=== PATIENT | male | born 1965 | race Two or more races ===

== ENCOUNTER 2025-09-03 21:10 | Emergency (ER) | payer MEDICAID, OTHER ==
[~2025-09-03] VITALS: Ht 149.9 cm; Wt 62.6 kg
[2025-09-03 21:19] VITALS: BP 156/104; PULSE 70; RESP 16; TEMP 98.8; O2SAT 98
[2025-09-03] MEDS ORDERED: CLIN1CAP70 PO (23:47)
--- NOTE | 2025-09-03 23:47 | ED.PDOC ---
History of Present Illness(SKN HPI Comments 59-year-old male presents to ER for wound check. Patient reports that he started experiencing 7/10 pain with associated redness to right foot three days ago after he scratched his right foot with his fingers. Reports that he used a topical "violent" solution without relief and presents to ER ambulatory on arrival, with steady gait, in no distress. Denies fever, body aches, chills, drainage or any further symptoms/complaints Chief Complaint: Wound Check Time Seen by MD: 21:25 Primary Care Provider: UNKNOWN History of Present Illness: Nurses Notes, Medications, Allergies Allergies: Coded Allergies: NO KNOWN ALLERGIES (Unverified , 09/03/25) Home Meds Active Scripts Clotrimazole (Lotrimin Af) 1 % Cre, 1 APPLIC TOP BID for 7 Days, #1 CRE 0 Refills Prov:YUNI TRINIDAD 09/03/25 Clindamycin Hcl (Clindamycin Hcl) 300 Mg Cap, 1 CAP PO TID for 7 Days, #21 CAP 0 Refills Prov:YUNI TRINIDAD 09/03/25 Information Source: Patient Mode of Arrival: Ambulatory Past Medical History PAST MEDICAL HISTORY: Denies Surgical History: Denies all surgeries Family History Family History: Unknown Social History Smoker: Non-Smoker Alcohol: Denies ETOH Use Drugs: Denies Drug Use Lives In: Home Constitutional: denies: chills, diaphoresis, fatigue, fever, malaise, sweats, weakness, others EENTM: denies: blurred vision, double vision, ear bleeding, ear discharge, ear drainage, ear pain, ear ringing, eye pain, eye redness, hearing loss, mouth pain, mouth swelling, nasal discharge, nose bleeding, nose congestion, nose pain, photophobia, tearing, throat pain, throat swelling, voice changes, others Respiratory: denies: cough, hemoptysis, orthopnea, SOB at rest, shortness of breath, SOB with excertion, stridor, wheezing, others Cardiovascular: denies: chest pain, dizzy spells, diaphoresis, Dyspnea on exertion, edema, irregular heart beat, left arm pain, lightheadedness, palpitations, PND, syncope, others Gastrointestinal: denies: abdomen distended, abdominal pain, blood streaked bowels, constipated, diarrhea, dysphagia, difficulty swallowing, hematemesis, melena, nausea, poor appetite, poor fluid intake, rectal bleeding, rectal pain, vomiting, others Genitourinary: denies: burning, dysuria, flank pain, frequency, hematuria, incontinence, penile discharge, penile sore, pain, testicle pain, testicle swelling, urgency, others Musculoskeletal: denies: back pain, gout, joint pain, joint swelling, muscle pain, muscle stiffness, neck pain, others Integumetry: reports: others (As stated in HPI) Allergic/Immunocompromised: denies: Difficulty Healing, Frequent Infections, Hives, Itching, others Hematologic/Lymphatic: denies: anemia, blood clots, easy bleeding, easy bruising, swollen glands, others Endocrine: denies: excessive hunger, excessive sweating, excessive thirst, excessive urination, flushing, intolerance to cold, intolerance to heat, unexplained weight gain, unexplained weight loss, others Psychiatric: denies: anxiety, bipolar disorder, depression, hopeless, panic disorder, schizophrenia, sleepless, suicidal, others Physical Exam General Appearance: No Apparent Distress HEENT: PERRL/EOMI Neck: Full Range of Motion, Non-Tender, Normal Respiratory: Chest Non-Tender, Lungs Clear, No Accessory Muscle Use, No Res piratory Distress, Normal Breath Sounds Cardiovascular: No Murmur, No Gallop, Regular Rate/Rhythm Breast Exam: Deferred Gastrointestinal: NOT DONE Genitalia: Deferred Pelvic: Deferred Rectal: Deferred Extremities: Normal capillary refill, Normal range of motion Neurologic: Alert, No Motor Deficits, Normal Affect, Normal Mood, No Sensory Deficits Cerebellar Function: Normal Reflexes: Normal Skin: Dry, Warm, Other (Mild erythema noted to dorsal surface of right foot with webspace involvement, no bleeding/drainage/fluctuance noted. No bony tenderness appreciated. Gait intact without abnormality) Peripheral Pulses: 2+ dorsalis pedis (R), 2+ dorsalis pedis (L), 2+ Radial (R), 2+ Radial (L), 2+ Brachial (R), 2+ Brachial (L) Lymphatic: No Adenopathy Was a procedure done? Was a procedure done?: No Sedation Sedation?: No Differential Diagnosis (INTG) Differential Diagnosis: Abscess Differential Diagnosis: Neurovascular Injury Differential Diagnosis: Puncture Wound, Retained Foreign Body X-Ray, Labs, Meds, VS Vital Signs Date Time Temp Pulse Resp B/P (MAP) Pulse Ox O2 Delivery O2 Flow Rate FiO2 09/03/25 21:19 98.8 70 16 156/104 98 98.8 Rocephin 1 g IM ordered Toradol 60 mg IM ordered Wound care/cleaning discussed and advised Advised to follow up with PCP in 1-2 days Patient verbalized understanding and agreeable with current plan of care Advised to return to ER immediately if symptoms worsen Time of 1ST Reevaluation: 23:24 Reevaluation 1ST: N/A Patient Education/Counseling: Diagnosis, Treatment, Prognosis, Need For Follow Up Family Education/Counseling: No Family Present SEPSIS Sepsis Screen Date sepsis recognized/suspect: Sep 03, 2025 Time Sepsis recognized/suspect: 2120 Recent Procedure: No On Antibiotic Therapy: No Respiratory Rate >20: No Heart Rate >90: No Temp<36 C (96.8 F) or >38.3 C: No SBP <90 or MAP <65 mmHG: No New Acute Mental Status Change: No Is the patient on CPAP, BIPAP,: No Physician Orders Ceftriaxone Sodium (Rocephin) (09/04/25 00:00) Vital Signs Date Time Temp Pulse Resp B/P (MAP) Pulse Ox O2 Delivery O2 Flow Rate FiO2 09/03/25 21:19 98.8 70 16 156/104 98 98.8 Departure 1 Departure Time of Disposition: 23:46 Impression: Primary Impression: Cellulitis of right foot Additional Impression: Tinea pedis, right Disposition: 01 HOME / SELF CARE / HOMELESS Condition: Stable e-Prescriptions Clotrimazole (Lotrimin Af) 1 % Cre 1 APPLIC TOP BID for 7 Days, #1 CRE 0 Refills Prov: YUNI TRINIDAD 09/03/25 Clindamycin Hcl (Clindamycin Hcl) 300 Mg Cap 1 CAP PO TID for 7 Days, #21 CAP 0 Refills Prov: YUNI TRINIDAD 09/03/25 Discharged With: Self Critical Care Note Critical Care Time?: No Stability Stability form required: No Heart Score Heart Score: Heart Score Response (Comments) Value History N/A 0 EKG N/A 0 Age N/A 0 Risk Factors N/A 0 Troponin N/A 0 Total 0 YUNI TRINIDAD Sep 03, 2025 23:47
[2025-09-03] MEDS ORDERED: CLOT-32 TOP (23:52)
[2025-09-04] MEDS: cefTRIAXone SOD 1,000 MG VL IM ONE (00:08)
[2025-09-04] MEDS: KETOROLAC TROMETH 60MG/2ML VIAL IM ONE (00:09)
[2025-09-27] MEDS ORDERED: AML5T PO (09:44)
== END 2025-09-04 00:17 | disposition home or self-care (01) ==
LOC: ER 21:10
DX: L03.115 Cellulitis of right lower limb (principal); B35.3 Tinea pedis; Z79.899 Other long term (current) drug therapy
CPT/HCPCS: 96372; 99284; J0696; J1885

== ENCOUNTER 2025-09-23 09:56 | Inpatient (IN) | payer MEDICAID ==
[~2025-09-23] VITALS: Ht 147.3 cm; Wt 58.3 kg
[~2025-09-23 09:56] MED LIST: CLIN1CAP70 PO; CLOT-32 TOP
--- NOTE | 2025-09-23 10:30 | ED.PDOC ---
General HPI Comments 59 year old male presents to the ED with a chief complaint of urinary retention onset 3 days. Patient states he has been experiencing urinary retention, penile pain, penile discharge, itching for the past 3 days. About 15 minutes prior to ED arrival, he urinated a small amount. Upon ED arrival patient was hypertensive with BP of 192/120. Denies fever, chills, nausea, vomiting, diarrhea headache, dizziness, hematuria, hematemesis. No other symptoms or modifying factors present at this time. Chief Complaint: Urinary Time Seen by MD: 10:20 Primary Care Provider: UNKNOWN Reviewed notes: Medications, Allergies Allergies: Coded Allergies: NO KNOWN ALLERGIES (Unverified , 09/03/25) Home Meds Active Scripts Clotrimazole (Lotrimin Af) 1 % Cre, 1 APPLIC TOP BID for 7 Days, #1 CRE 0 Refills Prov:YUNI TRINIDAD 09/03/25 Clindamycin Hcl (Clindamycin Hcl) 300 Mg Cap, 1 CAP PO TID for 7 Days, #21 CAP 0 Refills Prov:YUNI TRINIDAD 09/03/25 Information Source: Patient Mode of Arrival: Ambulatory Severity: Moderate Timing: Days Duration: Since onset Prehospital treatment: None Onset: Spontaneous Symptoms: Dysuria, Penile discharge History of: UTI Location: Suprapubic Penile discharge: None Modifying factors: None associated signs and symptoms: Dysuria, Other Past Medical History PAST MEDICAL HISTORY: Denies Surgical History: Denies all surgeries Family History Family History: Unknown Social History Smoker: Non-Smoker Alcohol: Denies ETOH Use Drugs: Denies Drug Use Lives In: Home Constitutional: denies: chills, diaphoresis, fatigue, fever, malaise, sweats, weakness, others EENTM: denies: blurred vision, double vision, ear bleeding, ear discharge, ear drainage, ear pain, ear ringing, eye pain, eye redness, hearing loss, mouth pain, mouth swelling, nasal discharge, nose bleeding, nose congestion, nose pain, photophobia, tearing, throat pain, throat swelling, voice changes, others Respiratory: denies: cough, hemoptysis, orthopnea, SOB at rest, shortness of breath, SOB with excertion, stridor, wheezing, others Cardiovascular: denies: chest pain, dizzy spells, diaphoresis, Dyspnea on exertion, edema, irregular heart beat, left arm pain, lightheadedness, pal pitations, PND, syncope, others Gastrointestinal: reports: others (suprapubic pain); denies: abdomen distended, abdominal pain, blood streaked bowels, constipated, diarrhea, dysphagia, difficulty swallowing, hematemesis, melena, nausea, poor appetite, poor fluid intake, rectal bleeding, rectal pain, vomiting Genitourinary: reports: dysuria, penile discharge, pain (penile), others (retention); denies: burning, flank pain, frequency, hematuria, incontinence, penile sore, testicle pain, testicle swelling, urgency Neurological: denies: dizziness, fainting, headache, left sided numbness, left sided weakness, numbness, paresthesia, pre-existing deficit, right sided numbness, right sided weakness, seizure, speech problems, tingling, tremors, weakness, others Musculoskeletal: denies: back pain, gout, joint pain, joint swelling, muscle pain, muscle stiffness, neck pain, others Integumetry: denies: bruises, change in color, change in hair/nails, dryness, laceration, lesions, lumps, rash, wounds, others Allergic/Immunocompromised: denies: Difficulty Healing, Frequent Infections, Hives, Itching, others Hematologic/Lymphatic: denies: anemia, blood clots, easy bleeding, easy bruising, swollen glands, others Endocrine: denies: excessive hunger, excessive sweating, excessive thirst, excessive urination, flushing, intolerance to cold, intolerance to heat, unexplained weight gain, unexplained weight loss, others Psychiatric: denies: anxiety, bipolar disorder, depression, hopeless, panic disorder, schizophrenia, sleepless, suicidal, others All Other Systems: Reviewed and Negative Physical Exam General Appearance: Normal HEENT: Normal ENT Inspection, Pharynx Normal, TMs Normal Neck: Full Range of Motion, Non-Tender, Normal, Normal Inspection Respiratory: Chest Non-Tender, Lungs Clear, No Accessory Muscle Use, No Respiratory Distress, Normal Breath Sounds Cardiovascular: No Edema, No JVD, No Murmur, No Gallop, Normal Peripheral Pulses, Regular Rate/Rhythm Breast Exam: Deferred Gastrointestinal: No Organomegaly, No Pulsatile Mass, Normal Bowel Sounds, Sup rapubic (Tenderness), Tenderness (suprapubic) Genitalia: Deferred Pelvic: Deferred Rectal: Deferred Extremities: No calf tenderness, Normal capillary refill, Normal inspection, Normal range of motion, Non-tender, No pedal edema Musculoskeletal : Apperance: Normal Neurologic: Alert, 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 Was a procedure done?: No Differential Diagnosis Kidney stone (Female): Other Urinary Problem (Male): Bladder Obstruction, Plelonephritis, Urinary Retention, UTI X-Ray, Labs, Meds, VS Vital Signs Date Time Temp Pulse Resp B/P (MAP) Pulse Ox O2 Delivery O2 Flow Rate FiO2 09/23/25 14:30 97.0 65 19 144/99 (114) 95 97.0 09/23/25 13:33 98.1 59 18 201/118 (145) 99 98.1 09/23/25 11:30 62 16 99 Room Air* 0 21 09/23/25 11:30 98.1 62 16 187/114 (138) 98 98.1 09/23/25 09:57 99.3 63 18 192/120 96 99.3 Lab Test 09/23/25 13:32 09/23/25 12:00 Range/Units White Blood Count 14.7 H 4.4-10.8 10^3/uL Red Blood Count 5.18 4.5-5.90 10^6/uL Hemoglobin 15.8 13.5-17.5 g/dL Hematocrit 45.3 41.0-53.0 % Mean Corpuscular Volume 87.3 80.0-100.0 fL Mean Corpuscular Hemoglobin 30.4 28.0-32.0 pg Mean Corpuscular Hemoglobin Concent 34.8 32.0-36.0 g/dL Red Cell Distribution Width 13.8 11.8-14.3 % Platelet Count 230 140-450 10^3/uL Mean Platelet Volume 8.7 6.9-10.8 fL Neutrophils (%) (Auto) 88.7 H 37.0-80.0 % Lymphocytes (%) (Auto) 7.1 L 10.0-50.0 % Monocytes (%) (Auto) 3.6 0.0-12.0 % Eosinophils (%) (Auto) 0.1 0.0-7.0 % Basophils (%) (Auto) 0.5 0.0-2.0 % Neutrophils # (Auto) 13.1 H 1.6-8.6 10 ^3/uL Lymphocytes # (Auto) 1.0 0.4-5.4 10 ^3/uL Monocytes # (Auto) 0.5 0-1.3 10 ^3/uL Eosinophils # (Auto) 0 0-0.8 10 ^3/uL Basophils # (Auto) 0.1 0-0.2 10 ^3/uL Nucleated Red Blood Cells 0.1 % Sodium Level 138 136-145 mmol/L Potassium Level 3.8 3.5-5.1 mmol/L Chloride Level 103 98-107 mmol/L Carbon Dioxide Level 25 20-31 mmol/L Anion Gap 10 5-15 Blood Urea Nitrogen 6 L 9-23 mg/dL Creatinine 0.69 L 0.700-1.30 mg/dL Glomerular Filtration Rate Calc 108 >90 mL/min BUN/Creatinine Ratio 8.7 L 10.0-20.0 Serum Glucose 119 H 74-106 mg/dL Calcium Level 9.6 8.7-10.4 mg/dL Total Bilirubin 0.7 0.2-1.0 mg/dL Aspartate Amino Transferase (AST) 15 13-40 U/L Alanine Aminotransferase (ALT) 21 7-40 U/L Alkaline Phosphatase 112 46-116 U/L Total Protein 8.2 5.7-8.2 g/dL Albumin 4.3 3.2-4.8 g/dL Urine Color Colorless Yellow Urine Clarity Turbid H Clear Urine pH 6.5 5.0-9.0 Urine Specific [place] 1.004 1.001-1.035 Urine Protein Trace H Negative Urine Ketones Negative Negative Urine Blood 3+ H Negative /uL Urine Nitrite Negative Negative Urine Bilirubin Negative Negative Urine Urobilinogen Normal Negative mg/dL Urine Leukocyte Esterase 3+ Negative /uL Urine RBC 25 0 - 3 /hpf Urine Microscopic WBC 111 H 0-3 /HPF Urine Squamous Epithelial Cells None seen <5 /hpf Urine Bacteria Many H None Seen /hpf Urine Glucose Normal Normal mg/dL Current Medications Medications (Trade) Dose Ordered Sig/Pa Route Start Time Stop Time Status Last Admin Acetaminophen/ Hydrocodone Bitart ([place] 5/325MG Tab) 1 tab ONCE ONCE PO 09/23/25 13:45 09/23/25 13:46 DC 09/23/25 13:41 Lidocaine HCl (Lidocaine HCl Jelly) 5 ml ONCE ONCE TOP 09/23/25 13:45 09/23/25 13:46 DC 09/23/25 13:38 Time of 1ST Reevaluation: 10:50 Reevaluation 1ST: Unchanged Patient Education/Counseling: Diagnosis, Treatment, Prognosis Family Education/Counseling: No Family Present SEPSIS Sepsis Screen Date sepsis recognized/suspect: Sep 23, 2025 Time Sepsis recognized/suspect: 958 Recent Procedure: No On Antibiotic Therapy: No Respiratory Rate >20: No Heart Rate >90: No Temp<36 C (96.8 F) or >38.3 C: No SBP <90 or MAP <65 mmHG: No New Acute Mental Status Change: No Is the patient on CPAP, BIPAP,: No Physician Orders Perla Catheters (09/23/25 ) Urine Bacterial Culture (09/23/25 10:12) Ct Ab Pel With Iv Con Only (09/23/25 13:57) Lactated Ringer's (09/23/25 15:15) Vancomycin Once Stat (09/23/25 15:15) Lactic Acid W/ Reflex Order (09/23/25 16:00) Lactic Acid W/ Reflex Order (09/23/25 18:00) Cefepime 2 Gm Once Stat (09/23/25 15:15) Notify Md If Map <65 Or Bp<90 (09/23/25 15:03) If Map<65 Start Vasopressor (09/23/25 15:03) Sepsis Reassesment After Fluid (09/23/25 16:03) Morphine Sulfate Injection (09/23/25 15:15) Ondansetron Hcl (Zofran) (09/23/25 15:15) * Surgical Consult (09/23/25 ) Vital Signs Date Time Temp Pulse Resp B/P (MAP) Pulse Ox O2 Delivery O2 Flow Rate FiO2 09/23/25 14:30 97.0 65 19 144/99 (114) 95 97.0 09/23/25 13:33 98.1 59 18 201/118 (145) 99 98.1 09/23/25 11:30 62 16 99 Room Air* 0 21 09/23/25 11:30 98.1 62 16 187/114 (138) 98 98.1 09/23/25 09:57 99.3 63 18 192/120 96 99.3 Laboratory Tests Test 09/23/25 13:32 White Blood Count 14.7 10^3/uL (4.4-10.8) H Medications Medications Dose Ordered Sig/Pa Route Start Time Stop Time Status Last Admin Dose Admin Acetaminophen/ Hydrocodone Bitart 1 tab ONCE ONCE PO 09/23/25 13:45 09/23/25 13:46 DC 09/23/25 13:41 Lidocaine HCl 5 ml ONCE ONCE TOP 09/23/25 13:45 09/23/25 13:46 DC 09/23/25 13:38 Departure 1 Departure Time of Disposition: 15:06 (Patient with a complicated urinary tract infection. Patient also with a large inguinal hernia. We will consult surgery for inguinal hernia empirically cover patient with antibiotics and admit patient for further workup and expert consultation) Impression: Primary Impression: Complicated UTI (urinary tract infection) Additional Impressions: Inguinal hernia Intractable abdominal pain Disposition: ADMITTED INPATIENT Admit to: Tele Condition: Guarded Critical Care Note Critical Care Time?: Yes Critical care comment: Intractable abdominal pain Authorized and Performed by: Keyur Hollingsworth MD Total critical care time: Approximately 39 minutes Due to a high probability of clinically significant, life threatening deterioration, the patient required my highest level of preparedness to intervene emergently and I personally spent this critical care time directly and personally managing the patient. This critical care time included obtaining a history; examining the patient; pulse oximetry; ordering and review of studies; arranging urgent treatment with development of a management plan; evaluation of patient's response to treatment; frequent reassessment; and, discussions with other providers. This critical care time was performed to assess and manage the high probability of imminent, life-threatening deterioration that could result in multi-organ failure. It was exclusive of separately billable procedures and treating other patients and teaching time. Please see my other sections and the rest of the note for further information on patient assessment and treatment. Stability Stability form required: No Heart Score Heart Score: Heart Score Response (Comments) Value History N/A 0 EKG N/A 0 Age N/A 0 Risk Factors N/A 0 Troponin N/A 0 Total 0 I personally scribed for KEYUR HOLLINGSWORTH MD ([email or web address]) on 09/23/25 at 10:30. Electronically submitted by Lis Segovia ([email or web address]). KEYUR HOLLINGSWORTH MD Sep 23, 2025 10:30
[2025-09-23 11:30] VITALS: PULSE 62; RESP 16; O2SAT 99
[2025-09-23 13:24] LABS: Urine Protein, UAD TRACE (Negative)
[2025-09-23] MEDS: LIDOCAINE 2%HCL (LOCAL ANESTH.) INJ 10ml MDV ONE (13:37)
[2025-09-23] MEDS: LIDOCAINE 2% TOPICAL JELLY 5 ML URJT TOP ONE (13:38)
[2025-09-23] MEDS: HYDROcodone-ACET 5/325MG TAB PO ONE (13:41)
[2025-09-23 13:47] LABS: Hematocrit 45.3 % (41.0-53.0); Hemoglobin 15.8 g/dL (13.5-17.5); Mean Corpuscular Hemoglobin 30.4 pg (28.0-32.0); Mean Corpuscular Volume 87.3 fL (80.0-100.0); Nucleated Red Blood Cells % 0.1 %
[2025-09-23 14:02] LABS: Alanine Aminotransferase 21 U/L (7-40); Albumin 4.3 g/dL (3.2-4.8); Alkaline Phosphatase 112 U/L (46-116); Anion Gap 10 (5-15); BUN/Creatinine Ratio 8.7 (10.0-20.0); Blood Urea Nitrogen 6 mg/dL (9-23); Calcium 9.6 mg/dL (8.7-10.4); Carbon Dioxide 25 mmol/L (20-31); Chloride 103 mmol/L (98-107); Glucose 119 mg/dL (74-106); Potassium 3.8 mmol/L (3.5-5.1); Sodium 138 mmol/L (136-145); Total Protein 8.2 g/dL (5.7-8.2)
[2025-09-23 14:03] LABS: Bilirubin, Total 0.7 mg/dL (0.2-1.0)
[2025-09-23] MEDS: IOHEXOL 300 MG/ML 100ML BOTTLE IJ ONE (14:27)
--- NOTE | 2025-09-23 14:59 | DVH ---
CLINICAL HISTORY: abdominal pain TECHNIQUE: CT of the abdomen and pelvis was performed with IV contrast. This exam was performed according to our departmental dose optimization program. Up-to-date CT equipment and radiation dose reduction techniques are utilized as appropriate. CTDI 8 DLP 478 COMPARISON: None FINDINGS: Abdomen/Pelvis: The spleen, pancreas, gallbladder, and adrenal glands are unremarkable. There is diffuse hepatic steatosis. There is a left renal cyst. There is mild diffuse right ureteral wall thickening and inflammation. No focal parenchymal hypo enhancement is seen. The prostate gland is moderately enlarged, measuring 5 cm. The bladder is decompressed a Perla catheter. There is moderate wall thickening and mild inflammation. The abdominal aorta is normal in course and caliber. There are [id number] atherosclerotic calcifications. There is no free intraperitoneal air or fluid. There is no enlarged abdominal or pelvic lymph node. There is no bowel wall thickening or dilatation. The appendix is normal. There is a moderate to large right inguinal hernia containing fat and loops of nonobstructed small bowel. Other: The imaged lower thorax demonstrates borderline cardiomegaly, linear atelectasis, and breathing changes. No acute osseous abnormality is evident. IMPRESSION: Cystitis with ascending right urinary tract infection. Diffuse hepatic steatosis. Moderate Prostatomegaly. Moderate to large right inguinal hernia containing fat and loops of nonobstructed small bowel.
[2025-09-23] MEDS ORDERED: ONDANSETRON HCL 4 MG/2 ML VIAL IV PRN (15:30)
[2025-09-23] MEDS ORDERED: HYDROcodone-ACET 5/325MG TAB PO PRN (15:30)
[2025-09-23] MEDS ORDERED: ACETAMINOPHEN 325 MG TAB PO PRN (15:30)
[2025-09-23] MEDS ORDERED: DOCUSATE SOD 100 MG CAP PO PRN (15:30)
[2025-09-23] MEDS ORDERED: NITROGLYCERIN 0.4 MG SL TAB SL PRN (15:30)
--- NOTE | 2025-09-23 15:30 | DVHHPRES ---
History of Present Illness Resident Creating Document: KARTHIKEYAN WOODARD RESIDENT History of Present Illness Brooke Etienne, A 59-year-old sexually active male with no known past medical history, presents to the ED with a 3-day history of urinary retention, penile pain, discharge, and itching, noting minimal urination shortly before arrival; triage BP was 192/120, and patient denies fever, chills, nausea, vomiting, diarrhea, headache, dizziness, hematuria, hematemesis, or other modifying factors. PMHx: non, known PSHx: Denies all surgeries Family history: limited history. Social history: Patient is a non-smoker, denies alcohol and illicit drug use, and lives at home. Review of Systems Constitutional: Yes: Chills, Malaise; No: Fever, Sweats, Weakness, Other Eyes: No: Pain, Vision change, Conjunctivae inflammation, Eyelid inflammation, Other, Redness Respiratory: No: Cough, Dry, Shortness of breath, SOB with excertion, Wheezing, Hemoptysis, Pleuritic Pain, Sputum, Wheezing, Other Cardiovascular: No: Chest Pain, Palpitations, Orthopnea, Paroxysmal Noc. Dyspnea, Edema, Lt Headedness, Other Gastrointestinal: No: Nausea, Vomiting, Abdominal Pain, Diarrhea, Constipation, Melena, Hematochezia, Other Genitourinary: Dysuria, Frequency, Incontinence, Retention, Other (penile discharge ) Musculoskeletal: No: other, neck pain, shoulder pain, arm pain, back pain, hand pain, leg pain, foot pain Skin: No: Rash, Lesions, Jaundice, Bruising, Other Neurological: No: Weakness, Numbness, Incoordination, Change in speech, Confusion, Seizures, Other Allergies: Coded Allergies: NO KNOWN ALLERGIES (Unverified , 09/03/25) Medications Current Medications Medications Dose Ordered Sig/Pa Route Start Time Stop Time Status Last Admin Dose Admin Acetaminophen/ Hydrocodone Bitart 1 tab Q4HP PRN PO 09/23/25 15:30 Ondansetron HCl 4 mg Q4HP PRN IV 09/23/25 15:30 Docusate Sodium 100 mg BIDPRN PRN PO 09/23/25 15:30 Acetaminophen 650 mg Q6HP PRN PO 09/23/25 15:30 Morphine Sulfate 2 mg Q4HPRN PRN IV 09/23/25 15:30 UNV Enoxaparin Sodium 40 mg DAILY SC 09/24/25 10:00 UNV Nitroglycerin 0.4 mg Q5MINP PRN SL 09/23/25 15:30 Morphine Sulfate 2 mg Q30M PRN IV 09/23/25 15:30 UNV Tamsulosin HCl 0.4 mg DAILY@DINNER PO 09/23/25 17:30 UNV Exam Vital Signs Vital Signs Date Time Temp Pulse Resp B/P (MAP) Pulse Ox O2 Delivery O2 Flow Rate FiO2 09/23/25 14:30 97.0 65 19 144/99 (114) 95 97.0 09/23/25 11:30 Room Air* 0 21 General Appearance: Alert, Oriented X3, Cooperative, mild distress HEENT: Atraumatic, PERRLA, EOMI, Mucous membr. moist/pink Respiratory: Clear to auscultation, Normal air movement Cardiovascular: Regular rate, Normal S1, Normal S2, No murmurs Abdominal: Normal bowel sounds, Soft, No hepatospenomegaly, No masses, Other (suprapubic deep tenderness. no CVA angle tenderness. ) Extremities: No clubbing, No cyanosis, No edema, Normal pulses, No tenderness/swelling Skin: No rashes, No breakdown, No significant lesion Neuro: Normal gait, Normal speech, Strength at 5/5 X4 ext, Normal tone, Sensation intact, Cranial nerves 3-12 NL, Reflexes 2+ Psych/Mental Status: Mental status NL, Mood NL Labs/Xrays Labs Test 09/23/25 15:21 09/23/25 13:32 09/23/25 12:00 Range/Units White Blood Count 14.7 H 4.4-10.8 10^3/uL Red Blood Count 5.18 4.5-5.90 10^6/uL Hemoglobin 15.8 13.5-17.5 g/dL Hematocrit 45.3 41.0-53.0 % Mean Corpuscular Volume 87.3 80.0-100.0 fL Mean Corpuscular Hemoglobin 30.4 28.0-32.0 pg Mean Corpuscular Hemoglobin Concent 34.8 32.0-36.0 g/dL Red Cell Distribution Width 13.8 11.8-14.3 % Platelet Count 230 140-450 10^3/uL Mean Platelet Volume 8.7 6.9-10.8 fL Neutrophils (%) (Auto) 88.7 H 37.0-80.0 % Lymphocytes (%) (Auto) 7.1 L 10.0-50.0 % Monocytes (%) (Auto) 3.6 0.0-12.0 % Eosinophils (%) (Auto) 0.1 0.0-7.0 % Basophils (%) (Auto) 0.5 0.0-2.0 % Neutrophils # (Auto) 13.1 H 1.6-8.6 10 ^3/uL Lymphocytes # (Auto) 1.0 0.4-5.4 10 ^3/uL Monocytes # (Auto) 0.5 0-1.3 10 ^3/uL Eosinophils # (Auto) 0 0-0.8 10 ^3/uL Basophils # (Auto) 0.1 0-0.2 10 ^3/uL Nucleated Red Blood Cells 0.1 % Sodium Level 138 136-145 mmol/L Potassium Level 3.8 3.5-5.1 mmol/L Chloride Level 103 98-107 mmol/L Carbon Dioxide Level 25 20-31 mmol/L Anion Gap 10 5-15 Blood Urea Nitrogen 6 L 9-23 mg/dL Creatinine 0.69 L 0.700-1.30 mg/dL Glomerular Filtration Rate Calc 108 >90 mL/min BUN/Creatinine Ratio 8.7 L 10.0-20.0 Serum Glucose 119 H 74-106 mg/dL Calcium Level 9.6 8.7-10.4 mg/dL Total Bilirubin 0.7 0.2-1.0 mg/dL Aspartate Amino Transferase (AST) 15 13-40 U/L Alanine Aminotransferase (ALT) 21 7-40 U/L Alkaline Phosphatase 112 46-116 U/L Total Protein 8.2 5.7-8.2 g/dL Albumin 4.3 3.2-4.8 g/dL Urine Color Colorless Yellow Urine Clarity Turbid H Clear Urine pH 6.5 5.0-9.0 Urine Specific [place] 1.004 1.001-1.035 Urine Protein Trace H Negative Urine Ketones Negative Negative Urine Blood 3+ H Negative /uL Urine Nitrite Negative Negative Urine Bilirubin Negative Negative Urine Urobilinogen Normal Negative mg/dL Urine Leukocyte Esterase 3+ Negative /uL Urine RBC 25 0 - 3 /hpf Urine Microscopic WBC 111 H 0-3 /HPF Urine Squamous Epithelial Cells None seen <5 /hpf Urine Bacteria Many H None Seen /hpf Urine Glucose Normal Normal mg/dL SEPSIS Sepsis Screen Date sepsis recognized/suspect: Sep 23, 2025 Time Sepsis recognized/suspect: 958 Recent Procedure: No On Antibiotic Therapy: No Respiratory Rate >20: No Heart Rate >90: No Temp<36 C (96.8 F) or >38.3 C: No SBP <90 or MAP <65 mmHG: No New Acute Mental Status Change: No Is the patient on CPAP, BIPAP,: No Physician Orders Perla Catheters (09/23/25 ) Urine Bacterial Culture (09/23/25 10:12) Ct Ab Pel With Iv Con Only (09/23/25 13:57) Lactated Ringer's (09/23/25 15:15) Vancomycin 1gm/250ml Kit (09/23/25 15:15) Lactic Acid W/ Reflex Order (09/23/25 16:00) Cefepime 1gm/50ml (Maxipime 1gm/50ml) (09/23/25 15:15) Notify Md If Map <65 Or Bp<90 (09/23/25 15:03) If Map<65 Start Vasopressor (09/23/25 15:03) Sepsis Reassesment After Fluid (09/23/25 16:03) * Surgical Consult (09/23/25 ) Admit (09/23/25 15:19) Allergies (09/23/25 15:19) Code Status (09/23/25 15:19) Hydrocodone-Acet 5/325mg Tab ([place] 5/32 (09/23/25 15:30) Ondansetron Hcl (Zofran) (09/23/25 15:30) Docusate Sodium Capsule (Colace Capsule) (09/23/25 15:30) Complete Blood Count (09/24/25 04:00) Comprehensive Metabolic Panel (09/24/25 04:00) Cardiac Diet-2gna,Lofat,Lochol (09/23/25 Dinner) Echo 2d Mode Cardiac Dop (09/23/25 15:19) Condition: Serious (09/23/25 15:19) Acetaminophen Tablet (Tylenol Tablet) (09/23/25 15:30) Bedrest With Bathroom Privileg (09/23/25 15:19) Morphine Sulfate Injection (09/23/25 15:30) Enoxaparin Sodium (Lovenox) (09/24/25 10:00) Nitroglycerin Sublingual (Ntrostat Subli (09/23/25 15:30) Morphine Sulfate Injection (09/23/25 15:30) Oxygen By Nasal Cannula (09/23/25 15:19) Stat Ekg For Chest Pain (09/23/25 15:19) Notify Md Of Changes From Base (09/23/25 15:19) Looping Inspector For 24 Hours (09/23/25 15:19) Emergency Dysrhythmia Protocol (09/23/25 15:19) Rhythm Strips Once Every Shift (09/23/25 15:19) Blood Culture (09/23/25 15:22) Kidney (09/23/25 15:22) Chest Xray 1 View (09/23/25:25) Covid19 Antigen Isabella (09/23/25 ) Rapid Influenza A&B (09/23/25 15:25) Tamsulosin Hydrochloride (Flomax) (09/23/25 17:30) Chlamydia/Gc Amplification (09/23/25 15:28) Vdrl Serum W/Reflex Titer (09/23/25 15:28) Vital Signs Date Time Temp Pulse Resp B/P (MAP) Pulse Ox O2 Delivery O2 Flow Rate FiO2 09/23/25 14:30 97.0 65 19 144/99 (114) 95 97.0 09/23/25 13:33 98.1 59 18 201/118 (145) 99 98.1 09/23/25 11:30 62 16 99 Room Air* 0 21 09/23/25 11:30 98.1 62 16 187/114 (138) 98 98.1 09/23/25 09:57 99.3 63 18 192/120 96 99.3 Laboratory Tests Test 09/23/25 13:32 09/23/25 15:21 White Blood Count 14.7 10^3/uL (4.4-10.8) H Lactic Acid Level Pending Medications Medications Dose Ordered Sig/Pa Route Start Time Stop Time Status Last Admin Dose Admin Acetaminophen/ Hydrocodone Bitart 1 tab ONCE ONCE PO 09/23/25 13:45 09/23/25 13:46 DC 09/23/25 13:41 1 TAB Lidocaine HCl 5 ml ONCE ONCE TOP 09/23/25 13:45 09/23/25 13:46 DC 09/23/25 13:38 5 ML Assessment/Plan Assessment/Plan #Acute complicated UTI: Likely Gram-negative, Urinalysis pointing towards pyuria, urine culture, blood culture sent, presented with predominant neutrophilia elevated white count, CBC trend, blood culture urine culture trend, no known multidrug resistant bacteria. IV Zosyn to continue status post 1 dose of IV cefepime and vancomycin at ER on arrival. Noted on CT Cystitis with ascending right urinary tract infection. #Hypertensive urgency: Presented with 190s of systolic, trend troponin, rule out CHF, echo pending, started treatment with amlodipine 10 mg daily, patient is in room air Breathing comfortably, otherwise physical examination unremarkable. #Bilateral renal cysts: No known family history of polycystic renal disease, GFR satisfactory, no further follow up needed. UDS to check. #Moderate to large right inguinal hernia: CT shows containing fat and loops of no obstructed small bowel. lactate negative, unlikely incarcerated, close follow up outpatient restrepo. #Diffuse hepatic steatosis : Fatty liver avoid hepatotoxic, lifestyle modification, avoid alcohol, dietary modification, CMP unremarkable, check INR / PT for sensory function. #BPH, Moderate Prostatomegaly: With signs of hesitancy, frequency in the background of UTI, we will treat as BPH, with 0.4 tamsulosin. Also check for ST Ds including Chlamydia, gonorrhea, syphilis. if excruciating pain and suspicion remains high then consider for complicated UTI/ acute prostatitis possible infectious etiology. Check HbA1c rule out diabetes. PUD prophylaxis: protonix 40mg IV prophylaxis DVT prophylaxis: Levonox 40mg/brisk movement reasonable. Barriers to discharge: Medical diagnosis and management in progress. 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 Case discussed with Dr. Jacobs Code Status: Full Code. Discussion for goals of care and care plan needed total 23 minutes bedside. Patient is admitted to the [facility] surge floor. Plan discussed with: Patient My Orders Orders - KARTHIKEYAN WOODARD RESIDENT Procedure Category Date Status Time Admit ADMIT 09/23/25 Transmitted 15:19 Allergies KENYATTA 09/23/25 In Process 15:19 Code Status CODE 09/23/25 Transmitted 15:19 Hydrocodone-Acet PHA 09/23/25 In Process 5/325mg Tab ([place] 15:30 Ondansetron Hcl PHA 09/23/25 In Process (Zofran) 15:30 Docusate Sodium PHA 09/23/25 In Process Capsule (Colace 15:30 Complete Blood Count LAB 09/24/25 Verified 04:00 Comprehensive LAB 09/24/25 Verified Metabolic Panel 04:00 Cardiac DIET 09/23/25 Transmitted Diet-2gna,Lofat,Lochol Dinner Echo 2d Mode Cardiac US 09/23/25 Logged DOP 15:19 Condition: Serious KENYATTA 09/23/25 In Process 15:19 Acetaminophen Tablet PHA 09/23/25 In Process (Tylenol Tablet) 15:30 Bedrest With Bathroom KENYATTA 09/23/25 In Process Privileg 15:19 Morphine Sulfate PHA 09/23/25 Logged Injection 15:30 Enoxaparin Sodium PHA 09/24/25 Logged (Lovenox) 10:00 Nitroglycerin PHA 09/23/25 In Process Sublingual (Ntrostat 15:30 Morphine Sulfate PHA 09/23/25 Logged Injection 15:30 Oxygen By Nasal RT 09/23/25 Transmitted Cannula 15:19 Stat Ekg For Chest KENYATTA 09/23/25 In Process Pain 15:19 Notify Of Changes KENYATTA 09/23/25 In Process From Base 15:19 Looping Inspector For [facility] 09/23/25 In Process 24 Hours 15:19 Emergency Dysrhythmia KENYATTA 09/23/25 In Process Protocol 15:19 Rhythm Strips Once [facility] 09/23/25 In Process Every Shift 15:19 Blood Culture GARRICK 09/23/25 Logged 15:22 Kidney US 09/23/25 Logged 15:22 Chest Xray 1 View XY 09/23/25 Logged 15:25 Covid19 Antigen Isabella LAB 09/23/25 Logged Rapid Influenza A&B LAB 09/23/25 Logged 15:25 Tamsulosin PHA 09/23/25 Logged Hydrochloride (Flomax) 17:30 Chlamydia/Gc LAB 09/23/25 Verified Amplification 15:28 Vdrl Serum W/Reflex LAB 09/23/25 Verified Titer 15:28 Date of Service: Sep 23, 2025 Billing Provider: GARIMA JACOBS MD Common Visit Codes: 83347-[id number] INP/OBS CARE (HIGH) Secondary Visit Codes: 92538-[id number] CARE PLAN 30 MINUTES KARTHIKEYAN WOODARD RESIDENT Sep 23, 2025 15:30
[2025-09-23] MEDS ORDERED: MORPHINE SULFATE 4 MG/ML SYR/VIAL IV PRN ×2 (15:45)
[2025-09-23] MEDS: CEFEPIME 1GM/50ML 50 ML IV ONE (15:51)
--- NOTE | 2025-09-23 16:04 | DVH ---
INDICATION: rule out radiolucent obstructions / hydronephrosis TECHNIQUE: Multiple real-time sonographic images of the kidneys and bladder were obtained. COMPARISON: None FINDINGS: The right kidney measures 9.7 cm in length, which is normal in size. There is normal echogenicity of the right kidney. No hydronephrosis. Renal cyst is noted. The left kidney measures 9.8 cm in length, which is normal in size. There is normal echogenicity of the left kidney. No hydronephrosis. Renal cyst is present. No large intraluminal masses are seen in the bladder. Perla catheter is present. IMPRESSION: 1. Bilateral renal cysts, no acute disease
[2025-09-23] MEDS: LACTATED RINGER'S 1,850 ML IV ONE (16:07)
[2025-09-23] MEDS: VANCOMYCIN 1GM/250ML KIT 250 ML IV ONE (16:07)
[2025-09-23] MEDS: MORPHINE SULFATE 4 MG/ML SYR/VIAL IV ONE (16:21)
[2025-09-23] MEDS: ONDANSETRON HCL 4 MG/2 ML VIAL IV ONE (16:23)
--- NOTE | 2025-09-23 16:30 | DVH ---
CHEST RADIOGRAPH INDICATION: rule out respiratory pathologies TECHNIQUE: Single frontal view of the chest was obtained COMPARISON: None FINDINGS: Lines and Tubes: None Lungs: No focal consolidation. Pleura: No effusion. No pneumothorax. Cardiomediastinal contours: Unremarkable Bones: No acute osseous abnormality. IMPRESSION: 1. No acute cardiopulmonary disease.
[2025-09-23] MEDS: TAMSULOSIN HYDROCHLORIDE 0.4 MG CAP PO SCH (17:30)
[2025-09-23 17:41] VITALS: BP 167/106; PULSE 67; RESP 16; TEMP 97; O2SAT 98
[2025-09-23 18:00] VITALS: RESP 16
[2025-09-23] MEDS: PIPERACILLIN-TAZOB 3.375GM 100 ML IV SCH (20:43)
[2025-09-23 20:53] LABS: INR 1.02 (0.9-1.15); Prothrombin Time 10.8 sec (9.3-11.8)
[2025-09-23 21:00] VITALS: BP 147/88; PULSE 62; RESP 18; TEMP 97.8; O2SAT 98
[2025-09-23 21:14] LABS: Opiate Scree,Urine Neg (NEGATIVE)
[2025-09-23 21:35] LABS: Amphetamine Screen, Urine Neg (NEGATIVE); Barbiturate Scree,Urine Neg (NEGATIVE); Benzodiazephine Screen, Urine Neg (NEGATIVE); Cannabinoid Screen, Urine Neg (NEGATIVE); Cocaine Screen, Urine Neg (NEGATIVE); Phencyclidine Screen, Urine Neg (NEGATIVE)
[2025-09-24 01:00] VITALS: BP 119/79; PULSE 69; RESP 18; TEMP 98.8; O2SAT 94
[2025-09-24 02:04] LABS: COVID19 ANTIGEN SOFIA FIA NEGATIVE (NEGATIVE)
[2025-09-24 05:00] VITALS: BP 115/82; PULSE 68; RESP 18; TEMP 98.2; O2SAT 93
[2025-09-24 06:52] LABS: Hematocrit 40.4 % (41.0-53.0); Hemoglobin 14.3 g/dL (13.5-17.5); Mean Corpuscular Hemoglobin 30.6 pg (28.0-32.0); Mean Corpuscular Volume 86.2 fL (80.0-100.0); Nucleated Red Blood Cells % 0.0 %
[2025-09-24 07:16] LABS: Alanine Aminotransferase 16 U/L (7-40); Alkaline Phosphatase 97 U/L (46-116); Anion Gap 11 (5-15); BUN/Creatinine Ratio 15.4 (10.0-20.0); Blood Urea Nitrogen 10 mg/dL (9-23); Calcium 9.0 mg/dL (8.7-10.4); Carbon Dioxide 26 mmol/L (20-31); Chloride 102 mmol/L (98-107); Glucose 104 mg/dL (74-106); Potassium 3.6 mmol/L (3.5-5.1); Sodium 139 mmol/L (136-145); Total Protein 7.0 g/dL (5.7-8.2)
[2025-09-24 07:17] LABS: Albumin 3.7 g/dL (3.2-4.8); Bilirubin, Total 0.9 mg/dL (0.2-1.0)
--- NOTE | 2025-09-24 07:52 | DVHSR ---
APPROVED REPORT EXAM: Two-dimensional and M-mode echocardiogram with Doppler and color Doppler. Blood Pressure: 144/99 mmHg INDICATION Rule out structural heart disease RISK FACTORS Height: 4'10", Weight: 135 DIMENSIONS LVDd 4.9 (3.8-5.7cm) LA (2D) 3.9 (1.9-4.0cm) Aortic Root 4.1 (2.0-3.7cm) LVDs 3.1 (2.5-4.0cm) LA (MM) (1.9-4.0cm) Aortic Cusp Exc 1.8 (1.5-2.0cm) EF (%) 60.0 (55-70%) Rt. Atrium 3.8 (1.9-4.0cm) Asc. Aorta 3.6 cm IVSd 1.1 (0.7-1.1cm) RV (D) (1.8-2.4cm) PWd 1.0 (0.7-1.1cm) Mitral Valve Mitral Mitral Stenosis E wave 0.69m/s MV Mean GR. mmHg A wave 0.68m/s MV Peak GR. mmHg E/A ratio 1.0 2D MVA cm2 DECEL Time 178ms PRESS 1/2 Time ms Aortic Valve Aortic Valve Aortic Stenosis V1 1.15m/s AO Mean GR. 3mmHg V2 1.24m/s AO Peak GR. 6mmHg LVOT Diameter 1.9 (1.8-2.4cm) Doppler JANETT 2.63cm2 Pulmonic Valve V2 1.04m/s Tricuspid Valve TR Velocity 3.02m/s RVSP 39mmHg Other Information Technically limited study due to body habitus. Conclusion lvef 60% moderate lvh normal rv function normal atria no severe valve abnormality noted
--- NOTE | 2025-09-24 08:53 | DVHINCON2 ---
Date of service: Sep 24, 2025 Family History: FHx: alcoholism G8 FATHER, Allergies: Coded Allergies: NO KNOWN ALLERGIES (Unverified , 09/03/25) Home Meds Active Scripts Clotrimazole (Lotrimin Af) 1 % Cre, 1 APPLIC TOP BID for 7 Days, #1 CRE 0 Refills Prov:YUNI TRINIDAD 09/03/25 Clindamycin Hcl (Clindamycin Hcl) 300 Mg Cap, 1 CAP PO TID for 7 Days, #21 CAP 0 Refills Prov:YUNI TRINIDAD 09/03/25 Current Medications Current Medications Medications (Trade) Dose Ordered Sig/Pa Route PRN Reason Start Time Stop Time Status Last Admin Acetaminophen/ Hydrocodone Bitart ([place] 5/325MG Tab) 1 tab Q4HP PRN PO MODERATE PAIN (4-6 PAIN SCALE) 09/23/25 15:30 Ondansetron HCl (Zofran) 4 mg Q4HP PRN IV NAUSEA / VOMITING 09/23/25 15:30 Docusate Sodium (Colace Capsule) 100 mg BIDPRN PRN PO FOR CONSTIPATION 09/23/25 15:30 Acetaminophen (Tylenol Tablet) 650 mg Q6HP PRN PO PAIN SCALE 1-3 OR TEMP>100.4 09/23/25 15:30 Morphine Sulfate 2 mg Q4HPRN PRN IV SEVERE PAIN (7-10 PAIN SCALE) 09/23/25 15:45 Enoxaparin Sodium (Lovenox) 40 mg DAILY SC 09/24/25 10:00 Nitroglycerin (Ntrostat Sublingual) 0.4 mg Q5MINP PRN SL FOR CHEST PAIN 09/23/25 15:30 Morphine Sulfate 2 mg Q30M PRN IV FOR CHEST PAIN 09/23/25 15:45 Tamsulosin HCl (Flomax) 0.4 mg DAILY@DINNER PO 09/23/25 17:30 09/23/25 17:30 Piperacillin Sod/ Tazobactam Sod 100 ml @ 25 mls/hr Q8HR IV 09/23/25 22:00 09/24/25 06:11 Amlodipine Besylate (Norvasc Tablet) 10 mg DAILY PO 09/24/25 10:00 Vital Signs Vital Signs Date Time Temp Pulse Resp B/P (MAP) Pulse Ox O2 Delivery O2 Flow Rate FiO2 09/24/25 08:00 Room Air* 0 21 09/24/25 05:00 98.2 68 18 115/82 (51) 93 98.2 Labs/Diagnostic Data Labs Test 09/24/25 05:44 09/24/25 00:16 09/23/25 20:48 09/23/25 20:13 Range/Units White Blood Count 8.9 # 4.4-10.8 10^3/uL Red Blood Count 4.69 4.5-5.90 10^6/uL Hemoglobin 14.3 13.5-17.5 g/dL Hematocrit 40.4 #L 41.0-53.0 % Mean Corpuscular Volume 86.2 80.0-100.0 fL Mean Corpuscular Hemoglobin 30.6 28.0-32.0 pg Mean Corpuscular Hemoglobin Concent 35.5 32.0-36.0 g/dL Red Cell Distribution Width 13.4 11.8-14.3 % Platelet Count 212 140-450 10^3/uL Mean Platelet Volume 8.8 6.9-10.8 fL Neutrophils (%) (Auto) 73.4 37.0-80.0 % Lymphocytes (%) (Auto) 15.4 10.0-50.0 % Monocytes (%) (Auto) 7.8 0.0-12.0 % Eosinophils (%) (Auto) 2.3 0.0-7.0 % Basophils (%) (Auto) 1.1 0.0-2.0 % Neutrophils # (Auto) 6.6 1.6-8.6 10 ^3/uL Lymphocytes # (Auto) 1.4 0.4-5.4 10 ^3/uL Monocytes # (Auto) 0.7 0-1.3 10 ^3/uL Eosinophils # (Auto) 0.2 0-0.8 10 ^3/uL Basophils # (Auto) 0.1 0-0.2 10 ^3/uL Nucleated Red Blood Cells 0.0 % Sodium Level 139 136-145 mmol/L Potassium Level 3.6 3.5-5.1 mmol/L Chloride Level 102 98-107 mmol/L Carbon Dioxide Level 26 20-31 mmol/L Anion Gap 11 5-15 Blood Urea Nitrogen 10 9-23 mg/dL Creatinine 0.65 L 0.700-1.30 mg/dL Glomerular Filtration Rate Calc 110 >90 mL/min BUN/Creatinine Ratio 15.4 10.0-20.0 Serum Glucose 104 74-106 mg/dL Calcium Level 9.0 8.7-10.4 mg/dL Total Bilirubin 0.9 0.2-1.0 mg/dL Aspartate Amino Transferase (AST) 15 13-40 U/L Alanine Aminotransferase (ALT) 16 7-40 U/L Alkaline Phosphatase 97 46-116 U/L Total Protein 7.0 5.7-8.2 g/dL Albumin 3.7 3.2-4.8 g/dL Influenza Type A Antigen Negative Negative Influenza Type B Antigen Negative Negative SARS-CoV-2 Antigen (Rapid) Negative NEGATIVE Urine Opiates Screen Neg NEGATIVE Urine Fentanyl Screen Neg NEGATIVE Urine Barbiturates Screen Neg NEGATIVE Urine Phencyclidine Screen Neg NEGATIVE Urine Amphetamines Screen Neg NEGATIVE Urine Benzodiazepines Screen Neg NEGATIVE Urine Cocaine Screen Neg NEGATIVE Urine Cannabinoids Screen Neg NEGATIVE Prothrombin Time 10.8 9.3-11.8 sec Prothrombin Time INR 1.02 0.9-1.15 Troponin I High Sensitivity 4 </=54 ng/L Plasma/Serum Blood Alcohol < 3.0 <10 mg/dL Test 09/23/25 15:21 09/23/25 13:32 09/23/25 12:00 Range/Units Lactic Acid Level 1.2 0.4-2.0 mmol/L Hemoglobin A1c 5.8 H <5.7 % A1C B-Type Natriuretic Peptide 59.24 0-100 pg/mL Urine Color Colorless Yellow Urine Clarity Turbid H Clear Urine pH 6.5 5.0-9.0 Urine Specific [place] 1.004 1.001-1.035 Urine Protein Trace H Negative Urine Ketones Negative Negative Urine Blood 3+ H Negative /uL Urine Nitrite Negative Negative Urine Bilirubin Negative Negative Urine Urobilinogen Normal Negative mg/dL Urine Leukocyte Esterase 3+ Negative /uL Urine RBC 25 0 - 3 /hpf Urine Microscopic WBC 111 H 0-3 /HPF Urine Squamous Epithelial Cells None seen <5 /hpf Urine Bacteria Many H None Seen /hpf Urine Glucose Normal Normal mg/dL Assessment large right inguinal hernia, reducible, non tender, no indication for emergency surgical intervention, patient to come to clinic to schedule elective repair Plan discussed with: Patient DERICK CARRIZALES MD Sep 24, 2025 08:52
[2025-09-24 09:05] VITALS: BP 117/80; PULSE 63; RESP 18; TEMP 97.1; O2SAT 96
[2025-09-24] MEDS: ENOXAPARIN SOD 40 MG/0.4 ML SYRINGE SC SCH (09:45)
--- NOTE | 2025-09-24 10:29 | DVHPN2 ---
Subjective The patient seen and examined at bedside. Complains of abdominal pain. Reviewed: Care Plan, H&P, Labs, Medications, Previous Orders, Radiology Changes from previous H/P or p: No Changes Eyes: No Pain, No Vision change, No Conjunctivae inflammation, No Eyelid inflammation, No Other, No Redness Cardiovascular: No Chest Pain, No Palpitations, No Orthopnea, No Paroxysmal Noc. Dyspnea, No Edema, No Lt Headedness, No Other Respiratory: No Cough, No Dry, No Shortness of breath, No SOB with excertion, No Wheezing, No Hemoptysis, No Pleuritic Pain, No Sputum, No Other Gastrointestinal: No Nausea, No Vomiting, No Abdominal Pain, No Diarrhea, No Constipation, No Melena, No Hematochezia, No Other Genitourinary: Dysuria, Frequency, Incontinence, Retention, Other (penile discharge ) Musculoskeletal: No other, No neck pain, No shoulder pain, No arm pain, No back pain, No hand pain, No leg pain, No foot pain Skin: No Rash, No Lesions, No Jaundice, No Bruising, No Other Objective Vitals Vital Signs Date Time Temp Pulse Resp B/P (MAP) Pulse Ox O2 Delivery O2 Flow Rate FiO2 09/24/25 09:46 117/80 09/24/25 09:05 97.1 63 18 96 97.1 09/24/25 08:00 Room Air* 0 21 Intake/Output Intake and Output 09/24/25 07:00 Intake Total 950 ml Output Total 900 ml Balance 50 ml Intake Oral 600 ml IV Total 350 ml Output Urine Total 900 ml General Appearance: Alert, Oriented X3, Cooperative HEENT: Atraumatic, PERRLA, EOMI, Mucous membr. moist/pink Neck: Supple Lungs: Clear to auscultation, Normal air movement Cardiovascular: Regular rate, Normal S1, Normal S2, No murmurs, Gallops, Rubs Abdomen: Normal bowel sounds, Soft, No tenderness Neuro: Cranial nerves 3-12 NL Psych/Mental Status: Mental status NL Medications Current Medications Medications Dose Ordered Sig/Pa Route Start Time Stop Time Status Last Admin Dose Admin Acetaminophen/ Hydrocodone Bitart 1 tab Q4HP PRN PO 09/23/25 15:30 Ondansetron HCl 4 mg Q4HP PRN IV 09/23/25 15:30 Docusate Sodium 100 mg BIDPRN PRN PO 09/23/25 15:30 Acetaminophen 650 mg Q6HP PRN PO 09/23/25 15:30 Morphine Sulfate 2 mg Q4HPRN PRN IV 09/23/25 15:45 Enoxaparin Sodium 40 mg DAILY SC 09/24/25 10:00 09/24/25 09:45 40 MG Nitroglycerin 0.4 mg Q5MINP PRN SL 09/23/25 15:30 Morphine Sulfate 2 mg Q30M PRN IV 09/23/25 15:45 Tamsulosin HCl 0.4 mg DAILY@DINNER PO 09/23/25 17:30 09/23/25 17:30 0.4 MG Piperacillin Sod/ Tazobactam Sod 100 ml @ 25 mls/hr Q8HR IV 09/23/25 22:00 09/24/25 06:11 25 MLS/HR Amlodipine Besylate 10 mg DAILY PO 09/24/25 10:00 09/24/25 09:46 10 MG Laboratory Results Laboratory Tests 09/24/25 05:44 Chemistry Test 09/23/25 13:32 09/24/25 05:44 Albumin 4.3 g/dL (3.2-4.8) 3.7 g/dL (3.2-4.8) Calcium Level 9.6 mg/dL (8.7-10.4) 9.0 mg/dL (8.7-10.4) Total Protein 8.2 g/dL (5.7-8.2) 7.0 g/dL (5.7-8.2) Coagulation Test 09/23/25 20:13 Prothrombin Time 10.8 sec (9.3-11.8) Prothrombin Time INR 1.02 (0.9-1.15) Cardiac Markers Test 09/23/25 13:32 B-Type Natriuretic Peptide 59.24 pg/mL (0-100) LFT Test 09/23/25 13:32 09/24/25 05:44 Alanine Aminotransferase (ALT) 21 U/L (7-40) 16 U/L (7-40) Alkaline Phosphatase 112 U/L (46-116) 97 U/L (46-116) Aspartate Amino Transferase (AST) 15 U/L (13-40) 15 U/L (13-40) Total Bilirubin 0.7 mg/dL (0.2-1.0) 0.9 mg/dL (0.2-1.0) HgA1c, TSH Test 09/23/25 13:32 Hemoglobin A1c 5.8 % A1C (<5.7) H Urinalysis Test 09/23/25 12:00 Urine Color Colorless (Yellow) Urine Clarity Turbid (Clear) H Urine pH 6.5 (5.0-9.0) Urine Specific [place] 1.004 (1.001-1.035) Urine Protein Trace (Negative) H Urine Ketones Negative (Negative) Urine Blood 3+ /uL (Negative) H Urine Nitrite Negative (Negative) Urine Bilirubin Negative (Negative) Urine Urobilinogen Normal mg/dL (Negative) Urine Leukocyte Esterase 3+ /uL (Negative) Urine RBC 25 /hpf (0 - 3) Urine Microscopic WBC 111 /HPF (0-3) H Urine Squamous Epithelial Cells None seen /hpf (<5) Urine Bacteria Many /hpf (None Seen) H Urine Glucose Normal mg/dL (Normal) Microbiology Microbiology Date/Time Source Procedure Growth Status 09/23/25 12:00 Urine - [place] Urine Culture - Preliminary Resulted Labs and/or images reviewed: Labs reviewed by me Assessment/Plan Assessment/Plan #Acute complicated UTI: Likely Gram-negative infection. Waiting for urine culture and blood culture. Continue IV zosyn. Per CT abdomen and pelvis show cystitis with ascending right UTI. #Hypertensive urgency, continue amlodipine 10mg daily. #Bilateral renal cysts #Moderate to large right inguinal hernia: CT shows containing fat and loops of no obstructed small bowel. lactate negative, unlikely incarcerated. Waiting for surgeon evaluation. #Diffuse hepatic steatosis : Fatty liver avoid hepatotoxic, lifestyle modification, avoid alcohol, dietary modification, CMP unremarkable, check INR / PT for sensory function. #BPH, Moderate Prostatomegaly: With signs of hesitancy, frequency in the background of UTI, we will treat as BPH, with 0.4 tamsulosin. Also check for STDs including Chlamydia, gonorrhea, syphilis. if excruciating pain and suspicion remains high then consider for complicated UTI/ acute prostatitis possible infectious etiology. Check HbA1c rule out diabetes. PUD prophylaxis: protonix 40mg IV prophylaxis DVT prophylaxis: Levonox 40mg/brisk movement reasonable. Plan discussed with: Patient Date of Service: Sep 24, 2025 Billing Provider: YIFAN BRAY MD Common Visit Codes: [id number] INP/OBS CARE(HIGH) YIFAN BRAY MD Sep 24, 2025 10:29
[2025-09-24 13:59] VITALS: BP 121/80; PULSE 67; RESP 18; TEMP 98; O2SAT 96
[2025-09-24 20:00] VITALS: PULSE 65; RESP 16; O2SAT 93
[2025-09-24 21:00] VITALS: BP 132/83; PULSE 65; RESP 16; TEMP 97.9; O2SAT 93
[2025-09-25 01:00] VITALS: BP 111/72; PULSE 72; RESP 17; TEMP 97; O2SAT 95
[2025-09-25 05:00] VITALS: BP 112/77; PULSE 62; RESP 17; TEMP 97.8; O2SAT 95
[2025-09-25 08:43] VITALS: BP 106/69; PULSE 61; RESP 16; TEMP 97.5; O2SAT 96
--- NOTE | 2025-09-25 11:40 | DVHDS2 ---
Discharge Summary Date of Admission Sep 23, 2025 at 15:19 Date of Discharge: Sep 25, 2025 Admitting Diagnosis #Acute complicated UTI: Likely Gram-negative infection. #Hypertensive urgency #Bilateral renal cysts #Moderate to large right inguinal hernia #Diffuse hepatic steatosis #BPH Labs/Diagnostic Data: Laboratory Results Test 09/24/25 05:44 09/24/25 00:16 09/23/25 20:48 09/23/25 20:13 White Blood Count 8.9 10^3/uL (4.4-10.8) Red Blood Count 4.69 10^6/uL (4.5-5.90) Hemoglobin 14.3 g/dL (13.5-17.5) Hematocrit 40.4 % (41.0-53.0) Mean Corpuscular Volume 86.2 fL (80.0-100.0) Mean Corpuscular Hemoglobin 30.6 pg (28.0-32.0) Mean Corpuscular Hemoglobin Concent 35.5 g/dL (32.0-36.0) Red Cell Distribution Width 13.4 % (11.8-14.3) Platelet Count 212 10^3/uL (140-450) Mean Platelet Volume 8.8 fL (6.9-10.8) Neutrophils (%) (Auto) 73.4 % (37.0-80.0) Lymphocytes (%) (Auto) 15.4 % (10.0-50.0) Monocytes (%) (Auto) 7.8 % (0.0-12.0) Eosinophils (%) (Auto) 2.3 % (0.0-7.0) Basophils (%) (Auto) 1.1 % (0.0-2.0) Neutrophils # (Auto) 6.6 10 ^3/uL (1.6-8.6) Lymphocytes # (Auto) 1.4 10 ^3/uL (0.4-5.4) Monocytes # (Auto) 0.7 10 ^3/uL (0-1.3) Eosinophils # (Auto) 0.2 10 ^3/uL (0-0.8) Basophils # (Auto) 0.1 10 ^3/uL (0-0.2) Nucleated Red Blood Cells 0.0 % Sodium Level 139 mmol/L (136-145) Potassium Level 3.6 mmol/L (3.5-5.1) Chloride Level 102 mmol/L (98-107) Carbon Dioxide Level 26 mmol/L (20-31) Anion Gap 11 (5-15) Blood Urea Nitrogen 10 mg/dL (9-23) Creatinine 0.65 mg/dL (0.700-1.30) Glomerular Filtration Rate Calc 110 mL/min (>90) BUN/Creatinine Ratio 15.4 (10.0-20.0) Serum Glucose 104 mg/dL (74-106) Calcium Level 9.0 mg/dL (8.7-10.4) Total Bilirubin 0.9 mg/dL (0.2-1.0) Aspartate Amino Transferase (AST) 15 U/L (13-40) Alanine Aminotransferase (ALT) 16 U/L (7-40) Alkaline Phosphatase 97 U/L (46-116) Total Protein 7.0 g/dL (5.7-8.2) Albumin 3.7 g/dL (3.2-4.8) Influenza Type A Antigen Negative (Negative) Influenza Type B Antigen Negative (Negative) SARS-CoV-2 Antigen (Rapid) Negative (NEGATIVE) Urine Opiates Screen Neg (NEGATIVE) Urine Fentanyl Screen Neg (NEGATIVE) Urine Barbiturates Screen Neg (NEGATIVE) Urine Phencyclidine Screen Neg (NEGATIVE) Urine Amphetamines Screen Neg (NEGATIVE) Urine Benzodiazepines Screen Neg (NEGATIVE) Urine Cocaine Screen Neg (NEGATIVE) Urine Cannabinoids Screen Neg (NEGATIVE) Prothrombin Time 10.8 sec (9.3-11.8) Prothrombin Time INR 1.02 (0.9-1.15) Troponin I High Sensitivity 4 ng/L (</=54) Plasma/Serum Blood Alcohol < 3.0 mg/dL (<10) Test 09/23/25 15:21 09/23/25 13:32 09/23/25 12:00 Lactic Acid Level 1.2 mmol/L (0.4-2.0) Hemoglobin A1c 5.8 % A1C (<5.7) B-Type Natriuretic Peptide 59.24 pg/mL (0-100) Urine Color Colorless (Yellow) Urine Clarity Turbid (Clear) Urine pH 6.5 (5.0-9.0) Urine Specific [place] 1.004 (1.001-1.035) Urine Protein Trace (Negative) Urine Ketones Negative (Negative) Urine Blood 3+ /uL (Negative) Urine Nitrite Negative (Negative) Urine Bilirubin Negative (Negative) Urine Urobilinogen Normal mg/dL (Negative) Urine Leukocyte Esterase 3+ /uL (Negative) Urine RBC 25 /hpf (0 - 3) Urine Microscopic WBC 111 /HPF (0-3) Urine Squamous Epithelial Cells None seen /hpf (<5) Urine Bacteria Many /hpf (None Seen) Urine Glucose Normal mg/dL (Normal) Other Laboratory Tests 09/24/25 05:44 Brief Hx & Hospital Course: Brooke Etienne, A 59-year-old sexually active male with no known past medical history, presents to the ED with a 3-day history of urinary retention, penile pain, discharge, and itching, noting minimal urination shortly before arrival; triage BP was 192/120, with pain medication the BP decrease. The patient was found to have UTI, possible Gram Negative bacteria. The patient was start on IV antibiotic with Rocephin. The patient has urine incontinence required ahmadi. PSA was check and elevate. Urology consult and recommend trial of void. Patient able to void and ahmadi discontinue. Patient need outpatient cystoscopy with urologist. Today, the patient has no fever or chill. BP controlled. Patient able to void. I am going to dc patient home. Advise patient to follow up with urologist per schedule. Follow up with PCP 1-2 weeks. Activity as tolerate. Diet per home diet. Physical examination: General Appearance: Alert, Oriented X3, Cooperative HEENT: Atraumatic, PERRLA, EOMI, Mucous membr. moist/pink Neck: Supple Lungs: Clear to auscultation, Normal air movement Cardiovascular: Regular rate, Normal S1, Normal S2, No murmurs, Gallops, Rubs Abdomen: Normal bowel sounds, Soft, No tenderness Neuro: Cranial nerves 3-12 NL Psych/Mental Status: Mental status NL Condition at Discharge: Stable Final Diagnosis/Problems List #Acute complicated UTI: Likely Gram-negative infection. #Hypertensive urgency #Bilateral renal cysts #Moderate to large right inguinal hernia #Diffuse hepatic steatosis #BPH #Urine incontinence. Discharge Disposition: Home Discharge Instruct/Medications Scheduled Clotrimazole (Lotrimin Af), 1 APPLIC TOP BID Levofloxacin Hemihydrate (Levaquin 500 Mg), 1 TAB PO DAILY Tamsulosin Hcl (Flomax), 0.4 MG PO DAILY@DINNER Scheduled PRN Hydrocodone-Acetaminophen (Hydrocodone Bitartrate/AC 5-325 mg), 1 TAB PO Q4HP PRN Discontinued Medications Clindamycin Hcl (Clindamycin Hcl), 1 CAP PO TID Discharge Statement: "Patient was advised to return to the ER or call 911 if any headaches, dizziness, shortness of breath, chest pain, abdominal pain, bleeding, fevers, or worsening of medical condition. Patient was counseled about treatment plan, medications, possible side effects, patientverbalized understanding. All questions were answered to the best of my ability. This discharge took greater then 30 minutes in planning, reviewing documentation, counseling the patient, and discussing with other team members." ASSESSMENT ASSESSMENT Assessment Date of Service: Sep 25, 2025 Billing Provider: YIFAN BRAY MD Common Visit Codes: 80132-PMP/OBS DISCH DAY >30min YIFAN BRAY MD Sep 25, 2025 11:40
--- NOTE | 2025-09-25 11:41 | DVHPN2 ---
Subjective The patient seen and examined at bedside. Complains of abdominal pain. Reviewed: Care Plan, H&P, Labs, Medications, Previous Orders, Radiology Eyes: No Pain, No Vision change, No Conjunctivae inflammation, No Eyelid inflammation, No Other, No Redness Cardiovascular: No Chest Pain, No Palpitations, No Orthopnea, No Paroxysmal Noc. Dyspnea, No Edema, No Lt Headedness, No Other Respiratory: No Cough, No Dry, No Shortness of breath, No SOB with excertion, No Wheezing, No Hemoptysis, No Pleuritic Pain, No Sputum, No Other Gastrointestinal: No Nausea, No Vomiting, No Abdominal Pain, No Diarrhea, No Constipation, No Melena, No Hematochezia, No Other Genitourinary: Dysuria, Frequency, Incontinence, Retention, Other (penile discharge ) Musculoskeletal: No other, No neck pain, No shoulder pain, No arm pain, No back pain, No hand pain, No leg pain, No foot pain Skin: No Rash, No Lesions, No Jaundice, No Bruising, No Other Objective Vitals Vital Signs Date Time Temp Pulse Resp B/P (MAP) Pulse Ox O2 Delivery O2 Flow Rate FiO2 09/25/25 10:13 106/69 09/25/25 08:43 97.5 61 16 96 97.5 09/25/25 07:45 Room Air* 0 21 Intake/Output Intake and Output 09/25/25 07:00 Intake Total 1125 ml Output Total 500 ml Balance 625 ml Intake Oral 925 ml IV Total 200 ml Output Urine Total 500 ml # Voids 5 # Bowel Movements 6 General Appearance: Alert, Oriented X3, Cooperative HEENT: Atraumatic, PERRLA, EOMI, Mucous membr. moist/pink Neck: Supple Lungs: Clear to auscultation, Normal air movement Cardiovascular: Regular rate, Normal S1, Normal S2, No murmurs, Gallops, Rubs Abdomen: Normal bowel sounds, Soft, No tenderness Neuro: Cranial nerves 3-12 NL Psych/Mental Status: Mental status NL Medications Current Medications Medications Dose Ordered Sig/Pa Route Start Time Stop Time Status Last Admin Dose Admin Acetaminophen/ Hydrocodone Bitart 1 tab Q4HP PRN PO 09/23/25 15:30 Ondansetron HCl 4 mg Q4HP PRN IV 09/23/25 15:30 Docusate Sodium 100 mg BIDPRN PRN PO 09/23/25 15:30 Acetaminophen 650 mg Q6HP PRN PO 09/23/25 15:30 Morphine Sulfate 2 mg Q4HPRN PRN IV 09/23/25 15:45 Enoxaparin Sodium 40 mg DAILY SC 09/24/25 10:00 09/25/25 10:13 40 MG Nitroglycerin 0.4 mg Q5MINP PRN SL 09/23/25 15:30 Morphine Sulfate 2 mg Q30M PRN IV 09/23/25 15:45 Tamsulosin HCl 0.4 mg DAILY@DINNER PO 09/23/25 17:30 09/24/25 17:20 0.4 MG Piperacillin Sod/ Tazobactam Sod 100 ml @ 25 mls/hr Q8HR IV 09/23/25 22:00 09/25/25 05:04 25 MLS/HR Amlodipine Besylate 10 mg DAILY PO 09/24/25 10:00 09/25/25 10:13 10 MG Laboratory Results Laboratory Tests 09/24/25 05:44 Urinalysis Test 09/23/25 12:00 Urine Color Colorless (Yellow) Urine Clarity Turbid (Clear) H Urine pH 6.5 (5.0-9.0) Urine Specific [place] 1.004 (1.001-1.035) Urine Protein Trace (Negative) H Urine Ketones Negative (Negative) Urine Blood 3+ /uL (Negative) H Urine Nitrite Negative (Negative) Urine Bilirubin Negative (Negative) Urine Urobilinogen Normal mg/dL (Negative) Urine Leukocyte Esterase 3+ /uL (Negative) Urine RBC 25 /hpf (0 - 3) Urine Microscopic WBC 111 /HPF (0-3) H Urine Squamous Epithelial Cells None seen /hpf (<5) Urine Bacteria Many /hpf (None Seen) H Urine Glucose Normal mg/dL (Normal) Microbiology Microbiology Date/Time Source Procedure Growth Status 09/23/25 15:51 Blood Blood Culture - Preliminary NO GROWTH AFTER 24 HOURS OF INCUBATION. Resulted 09/23/25 12:00 Urine - [place] Urine Culture - Preliminary Resulted Assessment/Plan Assessment/Plan #Acute complicated UTI: Likely Gram-negative infection. Waiting for urine culture and blood culture. Continue IV zosyn. Per CT abdomen and pelvis show cystitis with ascending right UTI. #Hypertensive urgency, continue amlodipine 10mg daily. #Bilateral renal cysts #Moderate to large right inguinal hernia: CT shows containing fat and loops of no obstructed small bowel. lactate negative, unlikely incarcerated. Waiting for surgeon evaluation. #Diffuse hepatic steatosis : Fatty liver avoid hepatotoxic, lifestyle modification, avoid alcohol, dietary modification, CMP unremarkable, check INR / PT for sensory function. #BPH, Moderate Prostatomegaly: With signs of hesitancy, frequency in the background of UTI, we will treat as BPH, with 0.4 tamsulosin. Also check for STDs including Chlamydia, gonorrhea, syphilis. if excruciating pain and suspicion remains high then consider for complicated UTI/ acute prostatitis possible infectious etiology. Check HbA1c rule out diabetes. PUD prophylaxis: protonix 40mg IV prophylaxis DVT prophylaxis: Levonox 40mg/brisk movement reasonable. YIFAN BRAY MD Sep 25, 2025 11:41
[2025-09-25] MEDS ORDERED: TAMS-35 PO (11:42)
[2025-09-25] MEDS ORDERED: LEVO500T91 PO (11:42)
[2025-09-25] MEDS ORDERED: HYDR-4902 PO (11:42)
[2025-09-25 12:11] VITALS: BP 106/69; TEMP 36.4
[2025-09-25 12:51] VITALS: BP 117/79; PULSE 63; RESP 16; TEMP 97.1; O2SAT 96
--- NOTE | 2025-09-25 12:51 | DVHINCON2 ---
Date of service: Sep 25, 2025 Referring Physician hospitalist Reason for Consultation urinary retention, complicated UTI History of Present Illness History Source: Patient, RN Notes, MD Notes Exam Limitations: No limitations HPI 59 yo male with c/o urinary retention dysuria and hematuria for 3 days. Urine culture grew E Coli. CT shows a large right inguinal hernia, was evaluated by general surgery, evidence of ascending infection with mild right hydro, cystitis and bladder wall thickening. Ahmadi in place. patient is afebrile, no prior history. Home Meds Active Scripts Levofloxacin Hemihydrate (LEVAQUIN 500 MG) 500 Mg Tab, 1 TAB PO DAILY, #7 TAB Prov:YIFAN BRAY MD 09/25/25 Tamsulosin Hcl (Flomax) 0.4 Mg Cap, 0.4 MG PO DAILY@DINNER, #30 CAP 5 Refills Prov:YIFAN BRAY MD 09/25/25 Hydrocodone-Acetaminophen (Hydrocodone Bitartrate/AC 5-325 mg) 1 Tab Tab, 1 TAB PO Q4HP PRN, #20 TAB Prov:YIFAN BRAY MD 09/25/25 Clotrimazole (Lotrimin Af) 1 % Cre, 1 APPLIC TOP BID for 7 Days, #1 CRE 0 Refills Prov:YUNI TRINIDAD 09/03/25 Clindamycin Hcl (Clindamycin Hcl) 300 Mg Cap, 1 CAP PO TID for 7 Days, #21 CAP 0 Refills Prov:YUNI TRINIDAD 09/03/25 Past Medical History Cardiac: No pertinent Hx Pulmonary: No pertinent Hx Central Nervous System: No pertinent Hx GI: No pertinent Hx Hemotology/Oncology: No pertinent Hx Hepatobiliary: No pertinent Hx Psychiatric: No pertinent Hx Musculoskeletal: No pertinent Hx Rheumotologic: No pertinent Hx Infectious Disease: No peritnent Hx ENT: No pertinent Hx Renal/: No pertinent Hx Endocrine: No pertinent Hx Dermatology: No pertinent Hx Patient Family History: FHx: alcoholism G8 FATHER, Review of Systems Genitourinary: Dysuria, Frequency, Hematuria, Retention, Pain H&P Exam Vital Signs Vital Signs Date Time Temp Pulse Resp B/P (MAP) Pulse Ox O2 Delivery O2 Flow Rate FiO2 09/25/25 12:11 36.4 09/25/25 10:13 106/69 09/25/25 08:43 61 16 96 09/25/25 07:45 Room Air* 0 21 Labs/Xrays [address] [address] Ph: [phone] DIAGNOSTIC IMAGING Diagnostic Imaging Report : [id number] Signed PATIENT: KATHERINE DISLA ACCT: [id number] UNIT: [id number] : 1965 LOC: OVERFLOW ROOM / BED: 1010-ER / A AGE / SEX: 59 / M ADM STATUS: ADM IN SERVICE 1522 ORDERING PHYSICIAN: KARTHIKEYAN WOODARD RESIDENT PROCEDURE(s): KIDUS - KIDNEY REASON: rule out radiolucent obstructions / hydronephrosis ORDER NUMBER(s): [id number], ACCESSION NUMBER(s): [id number] INDICATION: rule out radiolucent obstructions / hydronephrosis TECHNIQUE: Multiple real-time sonographic images of the kidneys and bladder were obtained. COMPARISON: None FINDINGS: The right kidney measures 9.7 cm in length, which is normal in size. There is normal echogenicity of the right kidney. No hydronephrosis. Renal cyst is noted. The left kidney measures 9.8 cm in length, which is normal in size. There is normal echogenicity of the left kidney. No hydronephrosis. Renal cyst is present. No large intraluminal masses are seen in the bladder. Ahmadi catheter is present. IMPRESSION: 1. Bilateral renal cysts, no acute disease ATED BY: OSMANY PIERCE MD DICTATED DATE/TIME: 09/23/25 1601 SIGNED BY: OSMANY PIERCE MD SIGNED DATE/TIME: 09/23/25 160 CC: [address] [address] Ph: [phone] DIAGNOSTIC IMAGING Diagnostic Imaging Report : [id number] Signed PATIENT: KATHERINE DISLA ACCT: [id number] UNIT: [id number] : 1965 LOC: ER ROOM / BED: / AGE / SEX: 59 / M ADM STATUS: REG ER SERVICE 1357 ORDERING PHYSICIAN: KEYUR RAHMAN MD PROCEDURE(s): ABPLIV - CT AB PEL WITH IV CON ONLY REASON: abdominal pain ORDER NUMBER(s): [id number], ACCESSION NUMBER(s): [id number] CLINICAL HISTORY: abdominal pain TECHNIQUE: CT of the abdomen and pelvis was performed with IV contrast. This exam was performed according to our departmental dose optimization program. Up-to-date CT equipment and radiation dose reduction techniques are utilized as appropriate. CTDI 8 DLP 478 COMPARISON: None FINDINGS: Abdomen/Pelvis: The spleen, pancreas, gallbladder, and adrenal glands are unremarkable. There is diffuse hepatic steatosis. There is a left renal cyst. There is mild diffuse right ureteral wall thickening and inflammation. No focal parenchymal hypo enhancement is seen. The prostate gland is moderately enlarged, measuring 5 cm. The bladder is decompressed a Ahmadi catheter. There is moderate wall thickening and mild inflammation. The abdominal aorta is normal in course and caliber. There are [id number] atherosclerotic calcifications. There is no free intraperitoneal air or fluid. There is no enlarged abdominal or pelvic lymph node. There is no bowel wall thickening or dilatation. The appendix is normal. There is a moderate to large right inguinal hernia containing fat and loops of nonobstructed small bowel. Other: The imaged lower thorax demonstrates borderline cardiomegaly, linear atelectasis, and breathing changes. No acute osseous abnormality is evident. IMPRESSION: Cystitis with ascending right urinary tract infection. Diffuse hepatic steatosis. Moderate Prostatomegaly. Moderate to large right inguinal hernia containing fat and loops of nonobstructed small bowel. ATED BY: MENDOZA GARCIA MD DICTATED DATE/TIME: 09/23/25 1457 SIGNED BY: MENDOZA GARCIA MD SIGNED DATE/TIME: 09/23/25 145 CC: Labs Test 09/24/25 05:44 09/24/25 00:16 09/23/25 20:48 09/23/25 20:13 Range/Units White Blood Count 8.9 # 4.4-10.8 10^3/uL Red Blood Count 4.69 4.5-5.90 10^6/uL Hemoglobin 14.3 13.5-17.5 g/dL Hematocrit 40.4 #L 41.0-53.0 % Mean Corpuscular Volume 86.2 80.0-100.0 fL Mean Corpuscular Hemoglobin 30.6 28.0-32.0 pg Mean Corpuscular Hemoglobin Concent 35.5 32.0-36.0 g/dL Red Cell Distribution Width 13.4 11.8-14.3 % Platelet Count 212 140-450 10^3/uL Mean Platelet Volume 8.8 6.9-10.8 fL Neutrophils (%) (Auto) 73.4 37.0-80.0 % Lymphocytes (%) (Auto) 15.4 10.0-50.0 % Monocytes (%) (Auto) 7.8 0.0-12.0 % Eosinophils (%) (Auto) 2.3 0.0-7.0 % Basophils (%) (Auto) 1.1 0.0-2.0 % Neutrophils # (Auto) 6.6 1.6-8.6 10 ^3/uL Lymphocytes # (Auto) 1.4 0.4-5.4 10 ^3/uL Monocytes # (Auto) 0.7 0-1.3 10 ^3/uL Eosinophils # (Auto) 0.2 0-0.8 10 ^3/uL Basophils # (Auto) 0.1 0-0.2 10 ^3/uL Nucleated Red Blood Cells 0.0 % Sodium Level 139 136-145 mmol/L Potassium Level 3.6 3.5-5.1 mmol/L Chloride Level 102 98-107 mmol/L Carbon Dioxide Level 26 20-31 mmol/L Anion Gap 11 5-15 Blood Urea Nitrogen 10 9-23 mg/dL Creatinine 0.65 L 0.700-1.30 mg/dL Glomerular Filtration Rate Calc 110 >90 mL/min BUN/Creatinine Ratio 15.4 10.0-20.0 Serum Glucose 104 74-106 mg/dL Calcium Level 9.0 8.7-10.4 mg/dL Total Bilirubin 0.9 0.2-1.0 mg/dL Aspartate Amino Transferase (AST) 15 13-40 U/L Alanine Aminotransferase (ALT) 16 7-40 U/L Alkaline Phosphatase 97 46-116 U/L Total Protein 7.0 5.7-8.2 g/dL Albumin 3.7 3.2-4.8 g/dL Influenza Type A Antigen Negative Negative Influenza Type B Antigen Negative Negative SARS-CoV-2 Antigen (Rapid) Negative NEGATIVE Urine Opiates Screen Neg NEGATIVE Urine Fentanyl Screen Neg NEGATIVE Urine Barbiturates Screen Neg NEGATIVE Urine Phencyclidine Screen Neg NEGATIVE Urine Amphetamines Screen Neg NEGATIVE Urine Benzodiazepines Screen Neg NEGATIVE Urine Cocaine Screen Neg NEGATIVE Urine Cannabinoids Screen Neg NEGATIVE Prothrombin Time 10.8 9.3-11.8 sec Prothrombin Time INR 1.02 0.9-1.15 Troponin I High Sensitivity 4 </=54 ng/L Plasma/Serum Blood Alcohol < 3.0 <10 mg/dL Test 09/23/25 15:21 09/23/25 13:32 09/23/25 12:00 Range/Units Lactic Acid Level 1.2 0.4-2.0 mmol/L Hemoglobin A1c 5.8 H <5.7 % A1C B-Type Natriuretic Peptide 59.24 0-100 pg/mL Urine Color Colorless Yellow Urine Clarity Turbid H Clear Urine pH 6.5 5.0-9.0 Urine Specific [place] 1.004 1.001-1.035 Urine Protein Trace H Negative Urine Ketones Negative Negative Urine Blood 3+ H Negative /uL Urine Nitrite Negative Negative Urine Bilirubin Negative Negative Urine Urobilinogen Normal Negative mg/dL Urine Leukocyte Esterase 3+ Negative /uL Urine RBC 25 0 - 3 /hpf Urine Microscopic WBC 111 H 0-3 /HPF Urine Squamous Epithelial Cells None seen <5 /hpf Urine Bacteria Many H None Seen /hpf Urine Glucose Normal Normal mg/dL Microbiology Date/Time Source Procedure Growth Status 09/23/25 15:51 Blood Blood Culture - Preliminary NO GROWTH AFTER 24 HOURS OF INCUBATION. Resulted 09/23/25 12:00 Urine - Ahmadi [place] Urine Culture - Final Escherichia coli Complete Assessment/Plan Problem List: (1) Inguinal hernia (2) Complicated UTI (urinary tract infection) Plan culture directed abx per primary team. ahmadi catheter, trial of void prior to discharge flomax daily outpt urology follow up for cystoscopy after resolution of infection. Plan discussed with: Patient, Other JESSICA TOLENTINO NP Sep 25, 2025 12:51
[2025-09-25 15:07] LABS: Chlamydia Trachomatis, NAA Negative (Negative); Neisseria gonorrhoeae, NAA Negative (Negative)
[2025-09-27] MEDS ORDERED: AML5T PO (09:44)
== END 2025-09-25 17:25 | disposition home or self-care (01) | DRG 463 ==
LOC: ER 09:56 → OVERFLOW 15:19 → CENTRAL 17:03
PROVIDERS: ADMIT Internal Medicine; ATTEND Internal Medicine
DX: N30.00 Acute cystitis without hematuria (principal); I16.0 Hypertensive urgency; B96.20 Unspecified Escherichia coli [E. coli] as the cause of diseases classified elsewhere; K76.0 Fatty (change of) liver, not elsewhere classified; K40.90 Unilateral inguinal hernia, without obstruction or gangrene, not specified as recurrent; N28.1 Cyst of kidney, acquired; N40.1 Benign prostatic hyperplasia with lower urinary tract symptoms; Z20.822 Contact with and (suspected) exposure to COVID-19; Z81.1 Family history of alcohol abuse and dependence; Z79.899 Other long term (current) drug therapy
CPT/HCPCS: 36415; 71045; 74177; 76775; 80053; 80307; 80320; 81001; 83036; 83605; 83880; 84484; 85025; 85610; 87040; 87086; 87088; 87186; 87426; 87804; 93306; 96365; 99291; G0378; J2003; J2543